=== PATIENT | female | born 1940 | race African-American/Black ===

== ENCOUNTER 2025-05-26 12:28 | Inpatient (IN) | payer MEDICARE ==
[~2025-05-26] VITALS: Ht 165.1 cm; Wt 55.8 kg
[2025-05-26 12:36] VITALS: O2SAT 98
[2025-05-26 14:05] LABS: BASOPHILS % 0.6 % (0.0-2.0); EOSINOPHILS % 0.1 % (0.0-5.0); HEMATOCRIT. 36.3 % (36.0-48.0); HEMOGLOBIN. 11.6 g/dL (12.0-16.0); LYMPHOCYTES % 8.9 % (20.0-50.0); MEAN PLATELET VOLUME 8.4 fl (7.4-10.4); MONOCYTES % 4.7 % (2.0-8.0); NEUTROPHILS % 85.7 % (40.0-76.0); PLATELET 363 x1000/uL (130-400); RED BLOOD CELL COUNT 4.67 mill/uL (4.2-5.4); RED CELL DISTRIBUTION WIDTH 16.5 % (11.6-14.6)
[2025-05-26 14:16] LABS: INR 1.2
[2025-05-26 14:27] LABS: CREATININE 0.8 mg/dL (0.6-1.0); UREA NITROGEN BLOOD 15 mg/dL (9-23)
[2025-05-26 14:29] LABS: ASPARTATE AMINOTRANSFERASE 14 IU/L (<34); BILIRUBIN DIRECT 0.2 mg/dL (<=3.0); BILIRUBIN TOTAL 0.5 mg/dL (0.1-1.0)
[2025-05-26 14:30] LABS: PROTEIN TOTAL 7.0 g/dL (6.0-8.3)
[2025-05-26 20:00] VITALS: BP 136/95; PULSE 76; RESP 18; TEMP 36.4; O2SAT 97
[2025-05-26] MEDS ORDERED: ENOXAPARIN 30MG/0.3ML SYR SUBCUT SCH (20:00)
[2025-05-26] MEDS ORDERED: ENOXAPARIN 40MG/0.4ML SYR SUBCUT SCH (20:15)
[2025-05-26] MEDS ORDERED: ACETAMINOPHEN 325MG TABLET PO PRN (20:15)
[2025-05-26] MEDS ORDERED: MORPHINE SULFATE 4 MG/ML INJ (FOR IV/IM USE) IV PRN (20:15)
[2025-05-26] MEDS ORDERED: NALOXONE HCL 0.4MG/ML VIAL IV PRN (20:15)
[2025-05-26] MEDS ORDERED: MAGNESIUM/ALUMINUM HYDROXIDE/SIMETHICONE 30ML UDC PO PRN (20:15)
[2025-05-26] MEDS ORDERED: ONDANSETRON HCL 4MG/2ML INJ IV PRN (20:15)
[2025-05-26] MEDS ORDERED: ZOLPIDEM TARTRATE 5MG TABLET PO PRN (21:00)
[2025-05-26] MEDS: PANTOPRAZOLE SODIUM 40 MG/VIAL IV SCH (21:25)
[2025-05-26] MEDS: DEXT 5%/0.45% NACL 1000ML 1,000 ML IV SCH (21:25)
[2025-05-26] MEDS: HYDROCODONE/ACETAMINOPHEN 5/325MG TABLET PO PRN (23:07)
[2025-05-26 23:53] VITALS: BP 136/95; PULSE 76; RESP 18; TEMP 36.4736
[2025-05-27] VITALS: BP 110/74; PULSE 75; RESP 18; TEMP 36.7; O2SAT 96
[2025-05-27 04:00] VITALS: BP 103/70; PULSE 52; RESP 18; TEMP 36.9; O2SAT 96
[2025-05-27 06:09] LABS: BASOPHILS % 0.4 % (0.0-2.0); EOSINOPHILS % 0.2 % (0.0-5.0); HEMATOCRIT. 31.2 % (36.0-48.0); HEMOGLOBIN. 10.2 g/dL (12.0-16.0); LYMPHOCYTES % 19.3 % (20.0-50.0); MEAN PLATELET VOLUME 8.2 fl (7.4-10.4); MONOCYTES % 8.4 % (2.0-8.0); NEUTROPHILS % 71.7 % (40.0-76.0); PLATELET 291 x1000/uL (130-400); RED BLOOD CELL COUNT 4.06 mill/uL (4.2-5.4); RED CELL DISTRIBUTION WIDTH 16.0 % (11.6-14.6)
[2025-05-27 06:26] LABS: CREATININE 1.0 mg/dL (0.6-1.0); UREA NITROGEN BLOOD 25 mg/dL (9-23)
[2025-05-27 07:02] LABS: HEPATITIS C AB NON REACTIVE (Neg) (Negative)
[2025-05-27 08:00] VITALS: BP 167/104; PULSE 91; RESP 17; TEMP 36.8; O2SAT 96
[2025-05-27] MEDS: CLONIDINE 0.1MG TABLET PO PRN (09:06)
[2025-05-27 12:00] VITALS: BP 155/100; PULSE 87; RESP 17; TEMP 36.7; O2SAT 96
[2025-05-27] MEDS ORDERED: BUPIVACAINE HCL/PF 0.5% (5MG/ML) 10ML ONE (12:20)
[2025-05-27] MEDS ORDERED: LIDOCAINE HCL/EPINEPHRINE 1%-EPI 1:100,000 20ML VIAL ONE (12:20)
[2025-05-27] MEDS ORDERED: POLYMYXIN B SULFATE 500000 UNITS/VIAL ONE (12:20)
[2025-05-27] MEDS ORDERED: VANCOMYCIN HCL 1GM VIAL ONE (12:20)
[2025-05-27] MEDS ORDERED: ACETAMINOPHEN 1000MG/100ML 100 ML IV ONE (12:21)
[2025-05-27] MEDS ORDERED: FAMOTIDINE 20MG/2ML VIAL IV ONE (12:21)
[2025-05-27] MEDS ORDERED: HYDROMORPHONE HCL/PF 1MG/ML INJ IV PRN (13:00)
[2025-05-27] MEDS ORDERED: ONDANSETRON HCL 4MG/2ML INJ IV PRN ×2 (13:00→13:30)
[2025-05-27] MEDS ORDERED: PROPOFOL 200MG/20ML VIAL IV ONE (13:19)
[2025-05-27] MEDS ORDERED: ROCURONIUM BROMIDE 10MG/ML VIAL 5ML IV ONE (13:19)
[2025-05-27] MEDS ORDERED: FENTANYL CITRATE/PF 50MCG/ML 2ML VIAL ONE (13:20)
[2025-05-27] MEDS ORDERED: HYDROCODONE/ACETAMINOPHEN 5/325MG TABLET PO PRN (13:30)
[2025-05-27] MEDS ORDERED: CEFAZOLIN SODIUM 1000MG/VIAL ONE (13:39)
[2025-05-27] MEDS ORDERED: EPHEDRINE SULFATE 50MG/ML VIAL ONE (13:40)
[2025-05-27] MEDS: HYDROMORPHONE HCL/PF 1MG/ML INJ IV PRN (15:28)
[2025-05-27 20:00] VITALS: BP 146/98; PULSE 74; RESP 18; TEMP 36.3; O2SAT 98
[2025-05-27] MEDS: CEFAZOLIN 1000MG PREMIX 50 ML IV SCH (22:22)
[2025-05-28] VITALS: BP 163/109; PULSE 88; RESP 18; TEMP 36.4; O2SAT 96
[2025-05-28 04:00] VITALS: BP 137/85; PULSE 68; RESP 19; TEMP 36.6; O2SAT 95
[2025-05-28] MEDS: CEFAZOLIN 1000MG PREMIX 50 ML IV SCH (06:03)
[2025-05-28 08:00] VITALS: BP_SYST 129; BP_SYST 132; BP_DIAS 61; BP_DIAS 84; PULSE 74; PULSE 84; RESP 17; RESP 19; TEMP 36.2; TEMP 36.6; O2SAT 97; O2SAT 98
[2025-05-28] MEDS: ENOXAPARIN 40MG/0.4ML SYR SUBCUT SCH (08:46)
[2025-05-28] MEDS: HYDROCODONE/ACETAMINOPHEN 5/325MG TABLET PO PRN (09:02)
[2025-05-28 09:04] LABS: CREATININE 1.2 mg/dL (0.6-1.0); UREA NITROGEN BLOOD 32.0 mg/dL (9-23)
[2025-05-28 09:08] LABS: BASOPHILS % 0.4 % (0.0-2.0); EOSINOPHILS % 0.1 % (0.0-5.0); HEMATOCRIT. 26.9 % (36.0-48.0); HEMOGLOBIN. 8.7 g/dL (12.0-16.0); LYMPHOCYTES % 14.5 % (20.0-50.0); MEAN PLATELET VOLUME 8.6 fl (7.4-10.4); MONOCYTES % 13.4 % (2.0-8.0); NEUTROPHILS % 71.6 % (40.0-76.0); PLATELET 258 x1000/uL (130-400); RED BLOOD CELL COUNT 3.49 mill/uL (4.2-5.4); RED CELL DISTRIBUTION WIDTH 15.9 % (11.6-14.6)
[2025-05-28 16:00] VITALS: BP 129/72; PULSE 61; RESP 18; TEMP 36.7; O2SAT 98
[2025-05-28 20:00] VITALS: BP 117/69; PULSE 60; RESP 19; TEMP 36.6; O2SAT 98
[2025-05-29] VITALS: BP 129/76; PULSE 58; RESP 18; TEMP 36.4; O2SAT 99
[2025-05-29 04:00] VITALS: BP 122/66; PULSE 57; RESP 18; TEMP 36.7; O2SAT 95
[2025-05-29 06:10] LABS: BASOPHILS % 0.5 % (0.0-2.0); EOSINOPHILS % 0.9 % (0.0-5.0); LYMPHOCYTES % 18.7 % (20.0-50.0); MEAN PLATELET VOLUME 8.3 fl (7.4-10.4); MONOCYTES % 14.8 % (2.0-8.0); NEUTROPHILS % 65.1 % (40.0-76.0); PLATELET 235 x1000/uL (130-400); RED BLOOD CELL COUNT 2.89 mill/uL (4.2-5.4); RED CELL DISTRIBUTION WIDTH 16.5 % (11.6-14.6)
[2025-05-29 06:17] LABS: CREATININE 0.9 mg/dL (0.6-1.0); UREA NITROGEN BLOOD 30 mg/dL (9-23)
[2025-05-29 07:12] LABS: HEMATOCRIT. 22.3 % (36.0-48.0); HEMOGLOBIN. 7.3 g/dL (12.0-16.0)
[2025-05-29 08:00] VITALS: BP 120/85; PULSE 60; RESP 20; TEMP 36.7; O2SAT 96
[2025-05-29] MEDS ORDERED: NON FORMULARY MED XX SCH (11:15)
[2025-05-29 12:00] VITALS: BP 117/80; PULSE 61; RESP 20; TEMP 36.7; O2SAT 96
[2025-05-29] MEDS: ALPRAZOLAM 0.25 MG TABLET PO PRN (13:11)
[2025-05-29] MEDS: IRON SUCROSE COMPLEX 200 MG in SODIUM CHLORIDE 0.9% 100 ML IV SCH (15:29)
[2025-05-29 16:00] VITALS: BP 118/65; PULSE 76; RESP 20; TEMP 36.2; O2SAT 99
[2025-05-29] MEDS: HYDROMORPHONE HCL/PF 2MG/ML INJ IV PRN (18:10)
[2025-05-29 20:00] VITALS: BP 115/64; PULSE 57; RESP 17; TEMP 36.4; O2SAT 98
[2025-05-30] VITALS: BP 138/72; PULSE 66; RESP 17; TEMP 36.3; O2SAT 97
[2025-05-30 04:00] VITALS: BP 111/62; PULSE 81; RESP 19; TEMP 36.3; O2SAT 98
[2025-05-30] MEDS: ENOXAPARIN 30MG/0.3ML SYR SUBCUT SCH (09:11)
[2025-05-30] MEDS ORDERED: FERR325T6 MT (11:10)
[2025-05-30] MEDS ORDERED: HYDR-4001 PO (11:10)
[2025-05-30] MEDS ORDERED: LOV30 SUBCUT (11:10)
[2025-05-30 11:15] LABS: BASOPHILS % 0.6 % (0.0-2.0); EOSINOPHILS % 1.0 % (0.0-5.0); HEMATOCRIT. 21.3 % (36.0-48.0); LYMPHOCYTES % 17.2 % (20.0-50.0); MEAN PLATELET VOLUME 8.6 fl (7.4-10.4); MONOCYTES % 5.2 % (2.0-8.0); NEUTROPHILS % 76.0 % (40.0-76.0); PLATELET 289 x1000/uL (130-400); RED BLOOD CELL COUNT 2.70 mill/uL (4.2-5.4); RED CELL DISTRIBUTION WIDTH 16.3 % (11.6-14.6)
[2025-05-30 11:22] LABS: HEMOGLOBIN. 6.8 g/dL (12.0-16.0)
[2025-05-30 12:00] VITALS: BP 121/91; PULSE 54; RESP 20; TEMP 36.6; O2SAT 99
[2025-05-30 16:00] VITALS: BP 118/81; PULSE 59; RESP 18; TEMP 36.6; O2SAT 98
[2025-05-30 20:00] VITALS: BP 160/83; PULSE 63; RESP 18; TEMP 36.4; O2SAT 96
[2025-05-31] VITALS (12 sets, daily range): BP systolic 110–181; BP diastolic 65–116; PULSE 58–97; RESP 18–20; TEMP 36–36.72516; O2SAT 96–100
[2025-05-31] MEDS ORDERED: HYDRALAZINE 20MG/ML VIAL IV PRN (12:30)
[2025-05-31] MEDS: HYDRALAZINE 10 MG in SODIUM CHLORIDE 0.9% 49.5 ML IV PRN (13:01)
== END 2025-05-31 20:40 | DRG 482 ==
LOC: ER 13:30 → EDBEDREQ 18:32 → EDBEDREQTM 18:32 → ENRESERV 19:10 → 4WST 20:20
PROVIDERS: ADMIT Internal Medicine; ATTEND Internal Medicine
PROC: 0QS704Z Reposition Left Upper Femur with Internal Fixation Device, Open Approach (ICD-10-PCS; principal; 2025-05-27)
PROC: 30233N1 Transfusion of Nonautologous Red Blood Cells into Peripheral Vein, Percutaneous Approach (ICD-10-PCS; 2025-05-31)
DX: S72.22XA Displaced subtrochanteric fracture of left femur, initial encounter for closed fracture (principal); D64.9 Anemia, unspecified; E11.9 Type 2 diabetes mellitus without complications; I48.91 Unspecified atrial fibrillation; S90.122A Contusion of left lesser toe(s) without damage to nail, initial encounter; S72.142A Displaced intertrochanteric fracture of left femur, initial encounter for closed fracture; W10.8XXA Fall (on) (from) other stairs and steps, initial encounter; Y93.89 Activity, other specified; Y92.89 Other specified places as the place of occurrence of the external cause
CPT/HCPCS: 36415; 71045; 73502; 73552; 76000; 80048; 80076; 83735; 84443; 85014; 85018; 85025; 86705; 86850; 86900; 86920; 87340; 93005; 93970; 97162; 97166; 97530; 97535; 99285; J0665; J0690; J1171; J1308; J1650; J2004; J2470; J2704; J3010; J3373; J3490; J7050; P9016; C1713; J0131